=== PATIENT | male | born 1945 | race Caucasian/White ===

== ENCOUNTER 2017-04-20 16:39 | Emergency (ER) | payer MEDICARE, MEDICAID ==
[~2017-04-20] VITALS: Ht 182.9 cm; Wt 72.6 kg
[2017-04-20] MEDS ORDERED: TETANUS,DIPTH,PERTUSS P/F (BOOSTRIX) 0.5 ML VIAL IM STA (19:07)
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
[2017-04-20 19:20] VITALS: BP 145/89
== END 2017-04-20 19:20 | disposition home or self-care (01) ==
LOC: EDUNIT# 16:39 → ER 16:42
DX: S00.03XA Contusion of scalp, initial encounter (principal); Z23 Encounter for immunization; W01.198A Fall on same level from slipping, tripping and stumbling with subsequent striking against other object, initial encounter
CPT/HCPCS: 90715; 99282; 99284

== ENCOUNTER 2022-08-27 20:04 | Emergency (ER) | payer MEDICARE, MEDICAID ==
[~2022-08-27] VITALS: Ht 177.8 cm; Wt 65.7 kg
[~2022-08-27 20:04] MED LIST: LISI10TA25 PO
[2022-08-27] MEDS ORDERED: LISI20TA26 (20:24)
--- NOTE | 2022-08-27 20:24 | ED Fall/Injury ---
General Stated Complaint: FALL/LEFT HIP/FACE/LEFT ANKLE PAIN Source: patient Exam Limitations: other (adavanced age) History of Present Illness Date Seen by Provider: Aug 27, 2022 Time Seen by Provider: 20:12 Initial Comments Patient is a 76-year-old male who presents to the emergency room with a chief complaint of left thigh and hip pain, left-sided facial pain after a mechanical trip and fall earlier this afternoon between 1 and 2 PM. He is brought to the emergency room by a friend who lives in his apartment complex. He apparently does live alone. He is not on blood thinners he only takes lisinopril for hypertension. He goes to [facility]. He states he did take his medication this morning, his blood pressure is quite high with diastolic a little over 100. Patient denies headache, nausea vomiting, chest pain, shortness of breath. Denies numbness tingling or weakness to his extremities. He complains of bilateral knee pain where he fell with a large abrasion on the right knee. Small abrasion on the left knee. He did catch himself with his left hand small abrasion over the thenar eminence. Also sustained a small abrasion to the left maxilla. Unknown last tetanus shot. Has not taken any thing for pain. Occurred: this afternoon (1-2pm) Severity: mild Injuries/Pain Location: face, lower extremity (left thigh) Context: tripped Loss of Consciousness: no loss of consciousness Modifying Factors: Worse With Movement Associated Symptoms (Fall): Trouble Walking (due to pain left leg) Allergies and Home Medications Allergies Coded Allergies: No Known Drug Allergies (Unverified , 04/20/17) Patient Home Medication List Home Medication List Reviewed: Yes Lisinopril (Lisinopril) 20 Mg Tablet, (Reported) Entered as Reported by: NIKI HODGE on 08/27/222023 Last Action: New Order Review of Systems Review of Systems Constitutional: see HPI Eyes: No Symptoms Reported Ears, Nose, Mouth, Throat: no symptoms reported Respiratory: no symptoms reported Cardiovascular: no symptoms reported Gastrointestinal: no symptoms reported Genitourinary: no symptoms reported Musculoskeletal: joint pain (bilateral knees swollen and with abrasions; left proximal thigh pain) Skin: other (abrasion left face) Psychiatric/Neurological: No Symptoms Reported Past Muqlnmc-Psxazo-Vlivyn Hx Immunizations Up To Date Tetanus Booster (TDap): Unknown Seasonal Allergies Seasonal Allergies: No Past Medical History Surgeries: No Respiratory: No Cardiac: No Neurological: No Genitourinary: No Gastrointestinal: No Musculoskeletal: No Endocrine: No HEENT: No Cancer: No Psychosocial: No Blood Disorders: No Physical Exam Vital Signs Vital Signs - First Documented 08/27/22 20:14 Temp 36.3 Pulse 72 Resp 14 B/P (MAP) 190/114 (139) Pulse Ox 95 O2 Delivery Room Air Capillary Refill : Height, Weight, BMI Height: 6'0" Weight: 160lbs. oz. 72.713750hy; 20.00 BMI Method:Stated General Appearance: WD/WN, no apparent distress HEENT: PERRL/EOMI, TMs normal, pharynx normal, other (abrasion left maxilla) Neck: non-tender, full range of motion, normal inspection Cardiovascular: regular rate, rhythm Respiratory: lungs clear, normal breath sounds, no respiratory distress, no accessory muscle use Gastrointestinal: non tender, soft Back: normal inspection, no vertebral tenderness Extremities: no pedal edema, other (tenderness left lateral proximal femur/hip; abrasions to bilateral knees with mild swelling right knee - FROM; distal NVI) Neurologic/Psychiatric: acid retort operator II-XII nml as tested, no motor/sensory deficits, alert, normal mood/affect, oriented x 3 Skin: other (abrasions as above) Progress/Results/Core Measures Results/Orders My Orders Orders - ECHO VELASQUEZ MD Femur, Left, 2 Views (08/27/22 20:24) Acetaminophen Tablet (Tylenol Tablet) (08/27/22 20:30) Dipht,Pertuss(Acell),Tet Adult (Boostrix (08/27/22 20:45) Medications Given in ED Current Medications Medications Dose Ordered Sig/Evelyn Route Start Time Stop Time Status Last Admin Dose Admin Acetaminophen 1,000 mg ONCE ONCE PO 08/27/22 20:30 08/27/22 20:31 DC 08/27/22 20:44 1,000 MG Diphtheria/ Tetanus/Acell Pertussis 0.5 ml ONCE ONCE IM 08/27/22 20:45 08/27/22 20:46 DC 08/27/22 20:45 0.5 ML Vital Signs/I&O 08/27/22 08/27/22 08/27/22 20:14 20:44 21:31 Temp 36.3 36.3 36.7 Pulse 72 62 Resp 14 16 B/P (MAP) 190/114 (139) 151/101 Pulse Ox 95 95 O2 Delivery Room Air Room Air Diagnostic Imaging Diagonstic Imaging: Xray Comments [facility], [place] NAME: MIRNA MEJÍA [facility] REC#: [id number] PT STATUS: REG ER : 1945 PHYSICIAN: ECHO VELASQUEZ MD ADMIT DATE: 08/27/22/ER Draft Date of Exam:08/27/22 FEMUR, LEFT, 2 VIEWS INDICATION: Left hip pain and recent fall with injury to femur. EXAMINATION: AP and lateral views of left femur were obtained. FINDINGS: There is mild atherosclerotic calcification. No acute fracture or dislocation is identified. No abnormal lytic or sclerotic focus is seen and there is no radiopaque foreign body. IMPRESSION: No acute abnormality. Dictated on workstation # [id number] Dict: 08/27/222045 Trans: 08/27/222049 PJE [id number] Interpreted by: WILLIAM LUCAS MD Electronically signed by: Departure Impression Primary Impression: Contusion of left hip and thigh Qualified Codes: S70.02XA - Contusion of left hip, initial encounter; S70.12XA - Contusion of left thigh, initial encounter Additional Impression: Abrasions of multiple sites Disposition: HOME, SELF-CARE Condition: Stable Departure-Patient Inst. Decision time for Depature: 21:30 Referrals: [facility] (PCP/Family) Primary Care Physician Patient Instructions: Hip Pain ED, Skin Abrasions Add. Discharge Instructions: You can take extra strength Tylenol 2 tablets every 6 hours as needed for pain. Use a little triple antibiotic ointment twice a day on the abrasions on your knees for the next 2 days. Ice for swelling to your knee. You can also use ice packs on your left hip. If you develop any other new concerning symptoms please return to the emergency room for reevaluation. Please follow-up with your primary care doctor next week. Copy Copies To 1: SANNA NETTLES KATHRYN M MD Aug 27, 2022 20:24
[2022-08-27] MEDS ORDERED: ACETAMINOPHEN 500 MG TAB (TYLENOL) PO ONE (20:30)
[2022-08-27] MEDS ORDERED: RX-OXYCODONE/APAP 5-325 MG #4 TAB PK PO PRN (20:45)
[2022-08-27] MEDS ORDERED: TETANUS,DIPTH,PERTUSS P/F (BOOSTRIX) 0.5 ML VIAL IM ONE (20:45)
--- NOTE | 2022-08-27 20:51 | Diagnostic Imaging Report ---
INDICATION: Left hip pain and recent fall with injury to femur. EXAMINATION: AP and lateral views of left femur were obtained. FINDINGS: There is mild atherosclerotic calcification. No acute fracture or dislocation is identified. No abnormal lytic or sclerotic focus is seen and there is no radiopaque foreign body. IMPRESSION: No acute abnormality. Dictated by: Dictated on workstation # [id number]
[2022-08-27 21:31] VITALS: BP 151/101
== END 2022-08-27 21:33 | disposition home or self-care (01) ==
LOC: EDUNIT# 20:04 → ER 20:06
DX: S70.02XA Contusion of left hip, initial encounter (principal); S70.12XA Contusion of left thigh, initial encounter; S80.212A Abrasion, left knee, initial encounter; S80.211A Abrasion, right knee, initial encounter; S00.81XA Abrasion of other part of head, initial encounter; I10 Essential (primary) hypertension; Z79.899 Other long term (current) drug therapy; Z23 Encounter for immunization; Z28.310 Unvaccinated for COVID-19; W01.0XXA Fall on same level from slipping, tripping and stumbling without subsequent striking against object, initial encounter
CPT/HCPCS: 73552; 90715